=== PATIENT | female | born 1935 | race Caucasian/White ===

== ENCOUNTER → 2018-07-02 | Outpatient (CLI) | payer MEDICARE, OTHER ==
--- NOTE | 2018-07-02 16:45 | US ---
EXAMINATION TYPE: US venous doppler duplex LE LT DATE OF EXAM: 07/02/2018 4:16 PM COMPARISON: NONE CLINICAL HISTORY: M79.662 pain in left leg R22.42 swelling left leg. Pt states left leg swelling SIDE PERFORMED: Left TECHNIQUE: The lower extremity deep venous system is examined utilizing real time linear array sonog manish with graded compression, doppler sonography and color-flow sonography. VESSELS IMAGED: External Iliac Vein (EIV) Common Femoral Vein Deep Femoral Vein Greater Saphenous Vein * Femoral Vein Popliteal Vein Small Saphenous Vein * Proximal Calf Veins (* superficial vessels) Left Leg: Negative for DVT Attempted to call Dr's office at time of exam, no answer IMPRESSION: 1. Left lower extremity ultrasound negative for deep venous thrombosis.
== END ==
LOC: RADUSWWP 15:45
PROVIDERS: ATTEND Family Medicine
DX: M79.662 Pain in left lower leg (principal); M79.89 Other specified soft tissue disorders

== ENCOUNTER 2018-10-12 09:40 | Inpatient (IN) | payer MEDICARE, OTHER ==
[2018-10-12] MEDS ORDERED: ASPIRIN 81 MG PO STA (09:58)
--- NOTE | 2018-10-12 10:40 | ED ---
Chest Pain HPI - General Chief Complaint: Chest Pain Stated Complaint: Chest pain Time Seen by Provider: 10/12/18 09:51 Source: patient, RN notes reviewed Mode of arrival: wheelchair Limitations: no limitations - History of Present Illness Initial Comments: 82-year-old female presents emergency Department with chief complaint of chest discomfort and shortness of breath for last 4-5 days. Patient states she has severe pain which she takes a deep inspiration. Patient states she does have a history of hypertension hyperlipidemia and diabetes. She only takes medications for hypertension. Patient did take 2 baby aspirin this morning. Patient denies any trauma. Patient states she's not dizzy, nauseated, vomiting, diarrhea constipation or fevers chills no URI symptoms. Patient states she's had a cardiac catheter past which showed some narrowing. - Related Data Home Medications Medication Instructions Recorded Confirmed Aspirin 81 mg PO DAILY 06/05/14 10/12/18 Cholecalciferol (Vitamin D3) 2,000 unit PO DAILY 10/12/18 10/12/18 [Vitamin D3] Cyanocobalamin (Vitamin B-12) 1,000 mcg PO DAILY 10/12/18 10/12/18 [Vitamin B-12] Hydrochlorothiazide [Hydrodiuril] 25 mg PO DAILY 10/12/18 10/12/18 Levothyroxine Sodium [Synthroid] 50 mcg PO MOTUWETHFRSA 10/12/18 10/12/18 Losartan [Cozaar] 50 mg PO DAILY 10/12/18 10/12/18 Montelukast [Singulair] 10 mg PO DAILY 10/12/18 10/12/18 Ranitidine HCl [Zantac] 150 mg PO DAILY 10/12/18 10/12/18 Verapamil HCl [Verapamil ER] 120 mg PO DAILY 10/12/18 10/12/18 Allergies Allergy/AdvReac Type Severity Reaction Status Date / Time No Known Allergies Allergy Verified 10/12/18 10:07 Review of Systems ROS Statement: Those systems with pertinent positive or pertinent negative responses have been documented in the HPI. ROS Other: All systems not noted in ROS Statement are negative. 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 Past Medical History Past Medical History: Hypertension, Thyroid Disorder History of Any Multi-Drug Resistant Organisms: None Reported Past Surgical History: Joint Replacement, Orthopedic Surgery Additional Past Surgical History / Comment(s): abdoulaye knee Past Psychological History: No Psychological Hx Reported Smoking Status: Never smoker Past Alcohol Use History: None Reported Past Drug Use History: None Reported General Exam Limitations: no limitations General appearance: alert, in no apparent distress Head exam: Present: atraumatic, normocephalic, normal inspection Neck exam: Present: normal inspection. Absent: tenderness, meningismus, lymphadenopathy Respiratory exam: Present: normal lung sounds bilaterally, chest wall tenderness. Absent: respiratory distress, wheezes, rales, rhonchi, stridor Cardiovascular Exam: Present: regular rate, normal rhythm, normal heart sounds. Absent: systolic murmur, diastolic murmur, rubs, gallop, clicks GI/Abdominal exam: Present: soft, normal bowel sounds. Absent: distended, tenderness, guarding, rebound, rigid Course Vital Signs 10/12/18 10/12/18 10/12/18 09:43 11:00 12:30 Temperature 98.7 F Pulse Rate 75 63 60 Respiratory 18 18 18 Rate Blood Pressure 179/75 132/91 140/70 O2 Sat by Pulse 95 99 99 Oximetry 10/12/18 13:18 Temperature Pulse Rate 68 Respiratory 18 Rate Blood Pressure 140/73 O2 Sat by Pulse Oximetry Chest Pain MDM - MDM 82-year-old female presented to the ER for pleuritic chest pain. This is non- concerning for cardiac, CT shows evidence of possible pneumonia versus cancer. Patient will be admitted for treatment of pneumonia and pulmonary consult. Disposition Clinical Impression: Pneumonia, Pulmonary mass Disposition: ADMITTED IP TO THIS HOSP Condition: Fair Referrals: Leanne Coffman DO [Primary Care Provider] - 1-2 days
[2018-10-12 11:30] LABS: Basophils % (A) 1 %; Eosinophils # (A) 0.3 k/uL (0-0.7); Eosinophils % (A) 5 %; HCT 39.6 % (34.0-46.0); HGB 12.8 gm/dL (11.4-16.0); Lymphocytes # (A) 1.3 k/uL (1.0-4.8); Lymphocytes % (A) 18 %; MCH 28.7 pg (25.0-35.0); MCHC 32.2 g/dL (31.0-37.0); MCV 89.1 fL (80.0-100.0); Mean Platelet Volume 7.5; Monocytes # (A) 0.5 k/uL (0-1.0); Monocytes % (A) 7 %; Neutrophils # (A) 4.6 k/uL (1.3-7.7); Neutrophils % (A) 66 %; Platelet Count 208 k/uL (150-450); RBC 4.44 m/uL (3.80-5.40); RDW 14.3 % (11.5-15.5); WBC 6.9 k/uL (3.8-10.6)
--- NOTE | 2018-10-12 11:39 | XR ---
EXAMINATION TYPE: XR chest 2V DATE OF EXAM: 10/12/2018 COMPARISON: Prior chest x-ray dated 01/04/2012 HISTORY: Chest pain and shortness of breath for 5 days TECHNIQUE: Frontal and lateral views of the chest are obtained. FINDINGS: There is some elevation of left hemidiaphragm, patient is rotated. There are overlying card iac leads. Aorta is dense. There is a spinal curvature. There is no focal air space opacity, pleural effusion, or pneumothorax seen. The cardiac silhouette size is within normal limits. Thoracic spond ylosis is noted. Prominent lung volume could be indicative of underlying COPD. The osseous structures are intact. IMPRESSION: No acute cardiopulmonary process. Rotated exam. Possible mild elevation of left hemidiap hragm.
[2018-10-12 11:42] LABS: ALT 22 U/L (9-52); AST 24 U/L (14-36); Albumin 3.8 g/dL (3.5-5.0); Alkaline Phosphatase 66 U/L (38-126); Anion Gap 5 mmol/L; Blood Urea Nitrogen 16 mg/dL (7-17); Calcium 8.9 mg/dL (8.4-10.2); Carbon Dioxide 32 mmol/L (22-30); Chloride 104 mmol/L (98-107); Glucose 107 mg/dL (74-99); INR 0.9 (<1.2); Lipase 59 U/L (23-300); Magnesium 2.2 mg/dL (1.6-2.3); Potassium 3.8 mmol/L (3.5-5.1); Prothrombin Time 9.8 sec (9.0-12.0); Sodium 141 mmol/L (137-145); Total Bilirubin 0.6 mg/dL (0.2-1.3); Total Protein 6.9 g/dL (6.3-8.2)
[2018-10-12 11:48] LABS: D-Dimer 1.03 mg/L FEU (<0.60)
--- NOTE | 2018-10-12 12:52 | CT ---
EXAMINATION TYPE: CT chest angio for PE DATE OF EXAM: 10/12/2018 COMPARISON: NONE HISTORY: Chest pain CT DLP: 224.6 mGycm. Automated Exposure Control for Dose Reduction was Utilized. CONTRAST: CTA scan of the thorax is performed with IV Contrast, patient injected with 100 mL of Isovue 370, pul monary embolism protocol. MIP Images are created on CT scanner and reviewed. FINDINGS: LUNGS: Slightly elevated left hemidiaphragm is present. Dependent atelectasis bilateral lower lobes i s seen. There are scattered small nodules predominantly in the periphery of the right lower lobe, for reference 4-5 nodules are identified laterally axial image 98 measuring under 4 mm in size. Some sma ll nodules also seen in the periphery of the lower aspect right upper lobe. Additional scattered smal l nodules in the periphery of the left lung are present. Some right infrahilar masslike consolidation axial image 79 is noted. Central right middle lobe involvement axial image 81 is present. This area measures 2.7 x 2.3 cm. MEDIASTINUM: There is satisfactory enhancement of the pulmonary artery and its branches, there is no CT evidence for pulmonary embolism. There are no greater than 1 cm hilar or mediastinal lymph nodes. No paracardial effusion is seen. Heart size is mildly enlarged. No definitive coronary artery calc ification. OTHER: Small to moderate-sized hiatal hernia. Mild to moderate multilevel spurring and vacuum disc ph enomenon. Moderate multilevel spurring in the spine. IMPRESSION: 1. No CT evidence for pulmonary embolism. 2. Mild cardiomegaly with right infrahilar masslike consolidation favoring central pneumonia in the m iddle and lower lobes, correlate clinically. Consider follow-up CT after treatment to reevaluate. Unu sual bilateral peripheral nodularity all measuring 4 mm or smaller in size. Differential would includ e metastatic disease, other etiologies not excluded.
[2018-10-12 12:54] LABS: Appearance,Urine Cloudy (Clear); Bacteria,Urine Many /hpf; Bilirubin,Urine Negative (Negative); Blood,Urine Negative (Negative); Color,Urine Yellow; Glucose,Urine (UA) Negative (Negative); Ketones,Urine Negative (Negative); Leukocyte Esterase,Urine Moderate (Negative); Mucus,Urine Rare /hpf; Nitrite,Urine Negative (Negative); Protein,Urine Negative (Negative); Specific Gravity,Urine 1.018 (1.001-1.035); Squamous Epithelial Cell,Urine 22 /hpf (0-4); Urobilinogen,Urine <2.0 mg/dL (<2.0)
[2018-10-12] MEDS ORDERED: AZITHROMYCIN 500 MG in SODIUM CHLORIDE 0.9% 250 ML IVPB STA (13:35)
[2018-10-12] MEDS ORDERED: cefTRIAXone IN SWFI 1,000 MG/10 ML SYRINGE IVP STA (13:35)
[2018-10-12] MEDS ORDERED: PNEUMONIA PROTOCOL UTILIZED 1 EACH MISC PO PRN (13:41)
[2018-10-12] MEDS ORDERED: guaiFENesin 600 MG TABLET.ER PO PRN (15:40)
[2018-10-12] MEDS ORDERED: ACETAMINOPHEN TAB 325 MG TAB PO PRN (15:41)
[2018-10-12] MEDS ORDERED: IPRATROPIUM-ALBUTEROL 3 ML NEB INHALATION PRN (15:42)
--- NOTE | 2018-10-12 15:52 | P.HPIM ---
History of Present Illness H&P Date: 10/12/18 This is an 82-year-old female patient of Dr. Coffman. Patient presented with complaints of chest discomfort with inspiratory breathing and shortness of breath for the past 4-5 days. Patient reports that she's had increasing cough with moderate sputum production. Patient denies fevers. Patient has a past medical history of hypertension, thyroid disorder and bilateral knee replacement. Patient denies any nicotine use. Chest x-ray showing no acute cardiopulmonary process. Rotated exam. Possible mild elevation of left hemidiaphragm. D-dimer elevated at 10.3. CTA of the chest performed showing no CT evidence for pulmonary embolism. Mild cardiomegaly with right infrahilar masslike consolidation favoring central pneumonia in the middle and lower lobes correlate clinically. Consider follow-up CT after treatment to reevaluate. Bilateral peripheral nodularity all measuring 4 mm or smaller in size. Differential would include metastatic disease and other etiologies not excluded. Patient started on Rocephin and Zithromax. pulmonary service is consulted. At this time patient denies chest pain or shortness of breath. Patient denies nausea vomiting or diarrhea. Patient denies any urinary burning or frequency. Review of Systems Please refer to HPI otherwise unremarkable Past Medical History Past Medical History: Hypertension, Thyroid Disorder History of Any Multi-Drug Resistant Organisms: None Reported Past Surgical History: Joint Replacement, Orthopedic Surgery Additional Past Surgical History / Comment(s): abdoulaye knee Past Psychological History: No Psychological Hx Reported Smoking Status: Never smoker Past Alcohol Use History: None Reported Past Drug Use History: None Reported Medications and Allergies Home Medications Medication Instructions Recorded Confirmed Type Aspirin 81 mg PO DAILY 06/05/14 10/12/18 History Cholecalciferol (Vitamin D3) 2,000 unit PO DAILY 10/12/18 10/12/18 History [Vitamin D3] Cyanocobalamin (Vitamin B-12) 1,000 mcg PO DAILY 10/12/18 10/12/18 History [Vitamin B-12] Hydrochlorothiazide [Hydrodiuril] 25 mg PO DAILY 10/12/18 10/12/18 History Levothyroxine Sodium [Synthroid] 50 mcg PO MOTUWETHFRSA 10/12/18 10/12/18 History Losartan [Cozaar] 50 mg PO DAILY 10/12/18 10/12/18 History Montelukast [Singulair] 10 mg PO DAILY 10/12/18 10/12/18 History Ranitidine HCl [Zantac] 150 mg PO DAILY 10/12/18 10/12/18 History Verapamil HCl [Verapamil ER] 120 mg PO DAILY 10/12/18 10/12/18 History Allergies Allergy/AdvReac Type Severity Reaction Status Date / Time No Known Allergies Allergy Verified 10/12/18 10:07 Physical Exam Vitals: Vital Signs Temp Pulse Resp BP Pulse Ox 10/12/18 14:23 60 16 153/76 96 10/12/18 13:18 68 18 140/73 10/12/18 12:30 60 18 140/70 99 10/12/18 11:00 63 18 132/91 99 10/12/18 09:43 98.7 F 75 18 179/75 95 Intake and Output 10/12/18 10/12/18 10/12/18 06:59 14:59 22:59 Other: Weight 78.925 kg Head normocephalic Neck supple Lungs diminished bilaterally Heart regular rate and rhythm S1-S2, no rub or gallop Abdomen is soft nontender nondistended positive bowel sounds no hepatosplenomegaly Extremities no edema Neuro alert and orientated to 3 Results CBC & Chem 7: 10/12/18 11:00 10/12/18 11:00 Labs: Abnormal Lab Results - Last 24 Hours (Table) 10/12/18 10/12/18 10/12/18 Range/Units 11:00 11:00 11:00 D-Dimer 1.03 H (<0.60) mg/L FEU Carbon Dioxide 32 H (22-30) mmol/L Glucose 107 H (74-99) mg/dL Urine Appearance Cloudy H (Clear) Ur Leukocyte Esterase Moderate H (Negative) Urine WBC 18 H (0-5) /hpf Ur Squamous Epith Cells 22 H (0-4) /hpf Urine Bacteria Many H (None) /hpf Urine Mucus Rare H (None) /hpf Assessment and Plan Assessment: 1. Increased shortness of breath and pleuritic chest pain related to pneumonia. CT of the chest performed showing mild cardiomegaly with right infrahilar masslike consolidation favoring Central pneumonia in the middle and lower lobes correlate clinically. Consider follow-up CT after treatment to reevaluate. 2. Nodularity seen on computed tomography scan of chest. Ct Scan showing bilateral peripheral nodularity all measuring 4 mm or smaller in size. Differential would include metastatic disease, other etiologies not excluded. Pulmonary services have been consulted 3. Urinary tract infection. UA showing moderate amount of leukocyte Estrace. maintained on Rocephin. Urine culture ordered 4. History of GERD 5. History of hyperlipidemia 6. History of essential hypertension 7. History of hypothyroidism 8. History of esophageal strictures DVT prophylaxis heparin. GI prophylaxis Protonix Time with Patient: Greater than 30 (Greater than 60% of the total time spent in counseling and coordination of care. I performed an examination of the patient and discussed their management with the Nurse Practitioner. I have reviewed the Nurse Practitioner's notes and agree with the documented findings and plan of care)
[2018-10-12] MEDS: LEVOTHYROXINE 50 MCG TAB PO SCH (16:08)
[2018-10-12] MEDS: IPRATROPIUM-ALBUTEROL 3 ML NEB INHALATION SCH (19:16)
[2018-10-12] MEDS: HEPARIN SODIUM,PORCINE 5,000 UNIT/ML 1 ML VIAL SQ SCH (20:04)
[2018-10-13] MEDS ORDERED: CALCIUM CARBONATE 500 MG CHEWABLE PO PRN
[2018-10-13] MEDS ORDERED: VERAPAMIL SR 120 MG TABLET.ER PO SCH ×2 (00:30→09:00)
[2018-10-13] MEDS ORDERED: PANTOPRAZOLE 40 MG TABLET PO SCH (07:30)
--- NOTE | 2018-10-13 07:47 | XR ---
EXAMINATION TYPE: XR chest 2V DATE OF EXAM: 10/13/2018 COMPARISON: Prior chest x-ray and chest CT 10/12/2018 HISTORY: Pneumonia TECHNIQUE: Frontal and lateral views of the chest are obtained. FINDINGS: Some patchy right infrahilar density is present. Prominent lung lines compatible with unde rlying COPD. No evident pneumothorax or pleural effusion. Heart size is stable. Small nodularity seen on CT scan is not seen on plain film. IMPRESSION: Correlate for pneumonia, follow-up to resolution, indeterminate pulmonary nodules.
[2018-10-13 07:54] LABS: Basophils # (A) 0.1 k/uL (0-0.2); Basophils % (A) 1 %; Eosinophils # (A) 0.3 k/uL (0-0.7); Eosinophils % (A) 6 %; HCT 36.1 % (34.0-46.0); HGB 11.6 gm/dL (11.4-16.0); Lymphocytes # (A) 1.7 k/uL (1.0-4.8); Lymphocytes % (A) 29 %; MCH 28.7 pg (25.0-35.0); MCHC 32.1 g/dL (31.0-37.0); MCV 89.5 fL (80.0-100.0); Mean Platelet Volume 8.1; Monocytes # (A) 0.5 k/uL (0-1.0); Monocytes % (A) 8 %; Neutrophils % (A) 53 %; Platelet Count 202 k/uL (150-450); RBC 4.04 m/uL (3.80-5.40); RDW 14.3 % (11.5-15.5); WBC 5.6 k/uL (3.8-10.6)
[2018-10-13 08:16] LABS: ALT 21 U/L (9-52); AST 20 U/L (14-36); Albumin 3.2 g/dL (3.5-5.0); Alkaline Phosphatase 54 U/L (38-126); Anion Gap 6 mmol/L; Blood Urea Nitrogen 17 mg/dL (7-17); Calcium 8.7 mg/dL (8.4-10.2); Carbon Dioxide 28 mmol/L (22-30); Chloride 107 mmol/L (98-107); Glucose 95 mg/dL (74-99); Potassium 3.9 mmol/L (3.5-5.1); Sodium 141 mmol/L (137-145); Total Bilirubin 0.4 mg/dL (0.2-1.3)
[2018-10-13] MEDS: IPRATROPIUM-ALBUTEROL 3 ML NEB INHALATION SCH ×2 (08:37→12:30)
[2018-10-13] MEDS: LEVOTHYROXINE 50 MCG TAB PO SCH (08:46)
[2018-10-13] MEDS: HEPARIN SODIUM,PORCINE 5,000 UNIT/ML 1 ML VIAL SQ SCH (08:47)
[2018-10-13] MEDS ORDERED: MONTELUKAST 10 MG TAB PO SCH (09:00)
[2018-10-13] MEDS ORDERED: HYDROCHLOROTHIAZIDE 25 MG TAB PO SCH (09:00)
[2018-10-13] MEDS ORDERED: ASPIRIN 81 MG PO SCH (09:00)
[2018-10-13] MEDS ORDERED: FAMOTIDINE 20 MG TAB PO SCH (09:00)
[2018-10-13] MEDS ORDERED: LOSARTAN 50 MG TAB PO SCH (09:00)
[2018-10-13] MEDS ORDERED: AZITHROMYCIN 500 MG in SODIUM CHLORIDE 0.9% 250 ML IVPB SCH (12:00)
--- NOTE | 2018-10-13 12:28 | P.CNPUL ---
History of Present Illness Consult date: 10/13/18 Reason for consult: dyspnea, cough, chest pain Chief complaint: Chest pain History of present illness: This is an 82-year-old female who presented to the emergency department complaining of chest pain that started 4-5 days ago. She states she does have a cough which is productive of white phlegm. She states her cough is been ongoing for quite a while. She denies fevers and chills. She denies weight loss and states her appetite is good. She denies night sweats. She states she didn't have shortness of breath until she had the chest pain a few days ago. She denies any wheezing. She is a lifelong never smoker. She states she used to work at [email or web address]. 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 She denies any exposures. She denies any contacts with tuberculosis or asbestos. In the emergency department the patient was found have an elevated d-dimer. CT of the chest was performed and showed no evidence of pulmonary embolism however a right infrahilar masslike consolidation was noted. She also has bilateral peripheral nodularity all measuring 4 mm or smaller, differential includes metastatic disease. 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 History of Any Multi-Drug Resistant Organisms: None Reported Past Surgical History: Joint Replacement, Orthopedic Surgery Additional Past Surgical History / Comment(s): abdoulaye knee Past Anesthesia/Blood Transfusion Reactions: No Reported Reaction, Motion Sickness Past Psychological History: No Psychological Hx Reported Smoking Status: Never smoker Past Alcohol Use History: None Reported Past Drug Use History: None Reported - Past Family History Father Family Medical History: No Reported History Additional Family Medical History / Comment(s): Father was healthy and lived to be 98yrs old. Mother Family Medical History: No Reported History Additional Family Medical History / Comment(s): Mother was healthy and lived to be 93 yrs old. Medications and Allergies Home Medications Medication Instructions Recorded Confirmed Type Aspirin 81 mg PO DAILY 06/05/14 10/12/18 History Cholecalciferol (Vitamin D3) 2,000 unit PO DAILY 10/12/18 10/12/18 History [Vitamin D3] Cyanocobalamin (Vitamin B-12) 1,000 mcg PO DAILY 10/12/18 10/12/18 History [Vitamin B-12] Hydrochlorothiazide [Hydrodiuril] 25 mg PO DAILY 10/12/18 10/12/18 History Levothyroxine Sodium [Synthroid] 50 mcg PO MOTUWETHFRSA 10/12/18 10/12/18 History Losartan [Cozaar] 50 mg PO DAILY 10/12/18 10/12/18 History Montelukast [Singulair] 10 mg PO DAILY 10/12/18 10/12/18 History Ranitidine HCl [Zantac] 150 mg PO DAILY 10/12/18 10/12/18 History Verapamil HCl [Verapamil ER] 120 mg PO PC-SUPPER 10/12/18 10/12/18 History Allergies Allergy/AdvReac Type Severity Reaction Status Date / Time No Known Allergies Allergy Verified 10/12/18 10:07 Physical Exam Osteopathic Statement: *. No significant issues noted on an osteopathic structural exam other than those noted in the History and Physical/Consult. Vitals: Vital Signs Temp Pulse Pulse Resp BP BP Pulse Ox 10/13/18 05:11 98 F 73 18 114/66 92 L 10/13/18 00:49 60 140/64 10/12/18 20:31 97.9 F 66 18 143/79 93 L 10/12/18 16:15 97.6 F 78 16 155/72 94 L 10/12/18 14:23 60 16 153/76 96 10/12/18 13:18 68 18 140/73 10/12/18 12:30 60 18 140/70 99 Intake and Output 10/12/18 10/13/18 10/13/18 22:59 06:59 14:59 Other: Voiding Method Toilet Toilet Toilet # Voids 1 1 GEN: Patient is alert and oriented 3, no acute distress Cardiovascular: Regular rate and rhythm, S1/S2 Lungs: Diminished breath sounds bilaterally otherwise clear Abdomen: Soft nontender nondistended positive bowel sounds Extremities: No edema Results - Laboratory Findings CBC and BMP: 10/13/18 06:55 10/13/18 06:55 PT/INR, D-dimer PT 9.8 sec (9.0-12.0) 10/12/18 11:00 INR 0.9 (<1.2) 10/12/18 11:00 D-Dimer 1.03 mg/L FEU (<0.60) H 10/12/18 11:00 Abnormal lab findings: Abnormal Labs 10/12/18 10/12/18 10/12/18 11:00 11:00 11:00 D-Dimer 1.03 H Carbon Dioxide 32 H Glucose 107 H Total Protein Albumin Urine Appearance Cloudy H Ur Leukocyte Esterase Moderate H Urine WBC 18 H Ur Squamous Epith Cells 22 H Urine Bacteria Many H Urine Mucus Rare H 10/13/18 06:55 D-Dimer Carbon Dioxide Glucose Total Protein 6.0 L Albumin 3.2 L Urine Appearance Ur Leukocyte Esterase Urine WBC Ur Squamous Epith Cells Urine Bacteria Urine Mucus - Diagnostic Findings Chest x-ray: report reviewed, image reviewed CT scan - chest: report reviewed, image reviewed Assessment and Plan Assessment: Acute atypical chest pain possible pleurisy Right infrahilar lung mass versus pneumonia Multiple pulmonary nodules of unclear etiology UTI Cardiomegaly GERD Dyslipidemia Hypertension Hypothyroidism Esophageal strictures O2 to maintain saturation greater than or equal to 90% Antibiotics: Azithromycin for 7 days Prednisone taper Outpatient PFT Repeat CT versus PET scan in 4-6 weeks This is discussed with the patient at length Okay to DC from pulmonary standpoint. Follow up next week.
[2018-10-13 12:50] VITALS: BP 131/61; PULSE 61; RESP 16; TEMP 97.8
--- NOTE | 2018-10-13 13:09 | P.DS ---
Providers Date of admission: 10/12/18 14:15 Expected date of discharge: 10/13/18 Attending physician: Jules Jeffers Consults: 10/12/18 13:41 Consult Physician Stat Consulting Provider: Melissa Cooper Consult Reason/Comments: Pulmonary mass, pneumonia Do you want consulting provider notified?: Yes Primary care physician: Leanne Coffman [facility] Course: Discharge diagnosis 1. Increased shortness of breath and pleuritic chest pain related to pneumonia. CT of the chest performed showing mild cardiomegaly with right infrahilar masslike consolidation favoring Central pneumonia in the middle and lower lobes correlate clinically. Consider follow-up CT after treatment to reevaluate. Repeat chest x-ray showing correlation. Resolution since patient has been cleared for discharge. Patient follow-up next week with pulmonary services. patient will be d/c on ceftin for 7 days 2. Nodularity seen on computed tomography scan of chest. Ct Scan showing bilateral peripheral nodularity all measuring 4 mm or smaller in size. Differential would include metastatic disease, other etiologies not excluded. Patient to follow up outpatient with pulmonary services 3. Urinary tract infection. UA showing moderate amount of leukocyte Estrace. maintained on Rocephin. Urine culture ordered 4. History of GERD 5. History of hyperlipidemia 6. History of essential hypertension 7. History of hypothyroidism 8. History of esophageal strictures Hospital course This is an 82-year-old female patient of Dr. Coffman. Patient presented with complaints of chest discomfort with inspiratory breathing and shortness of breath for the past 4-5 days. Patient reports that she's had increasing cough with moderate sputum production. Patient denies fevers. Patient has a past medical history of hypertension, thyroid disorder and bilateral knee replacement. Patient denies any nicotine use. Chest x-ray showing no acute cardiopulmonary process. Rotated exam. Possible mild elevation of left hemidiaphragm. D-dimer elevated at 10.3. CTA of the chest performed showing no CT evidence for pulmonary embolism. Mild cardiomegaly with right infrahilar masslike consolidation favoring central pneumonia in the middle and lower lobes correlate clinically. Consider follow-up CT after treatment to reevaluate. Bilateral peripheral nodularity all measuring 4 mm or smaller in size. Differential would include metastatic disease and other etiologies not excluded. Patient started on Rocephin and Zithromax. pulmonary service is consulted. At this time patient denies chest pain or shortness of breath. Patient denies nausea vomiting or diarrhea. Patient denies any urinary burning or frequency. On 10/13/2018 patient is alert and oriented 3 patient expresses that she is very eager to go home. Patient reevaluate pulmonary services. Discussed case pulmonary services okay to DC home on antibiotic and follow-up outpatient 1 week for workup. At this time patient denies any chest pain or shortness breath. Patient denies nausea vomiting diarrhea. Denies urinary burning or frequency. I performed an examination of the patient and discussed their management with the Nurse Practitioner. I have reviewed the Nurse Practitioner's notes and agree with the documented findings and plan of care Patient Condition at Discharge: Stable Plan - Discharge Summary Discharge Rx Participant: No New Discharge Prescriptions: New Cefuroxime Axetil [Ceftin] 500 mg PO BID 14 Days #7 tab Continue Aspirin 81 mg PO DAILY Ranitidine HCl [Zantac] 150 mg PO DAILY Losartan [Cozaar] 50 mg PO DAILY Hydrochlorothiazide [Hydrodiuril] 25 mg PO DAILY Cyanocobalamin (Vitamin B-12) [Vitamin B-12] 1,000 mcg PO DAILY Cholecalciferol (Vitamin D3) [Vitamin D3] 2,000 unit PO DAILY Montelukast [Singulair] 10 mg PO DAILY Levothyroxine Sodium [Synthroid] 50 mcg PO MOTUWETHFRSA Verapamil HCl [Verapamil ER] 120 mg PO PC-SUPPER Discharge Medication List Aspirin 81 mg PO DAILY 06/05/14 [History] Cholecalciferol (Vitamin D3) [Vitamin D3] 2,000 unit PO DAILY 10/12/18 [History] Cyanocobalamin (Vitamin B-12) [Vitamin B-12] 1,000 mcg PO DAILY 10/12/18 [History] Hydrochlorothiazide [Hydrodiuril] 25 mg PO DAILY 10/12/18 [History] Levothyroxine Sodium [Synthroid] 50 mcg PO MOTUWETHFRSA 10/12/18 [History] Losartan [Cozaar] 50 mg PO DAILY 10/12/18 [History] Montelukast [Singulair] 10 mg PO DAILY 10/12/18 [History] Ranitidine HCl [Zantac] 150 mg PO DAILY 10/12/18 [History] Verapamil HCl [Verapamil ER] 120 mg PO PC-SUPPER 10/12/18 [History] Cefuroxime Axetil [Ceftin] 500 mg PO BID 14 Days #7 tab 10/13/18 [Rx] Follow up Appointment(s)/Referral(s): Melissa Cooper DO [Doctor of Osteopathic Medicine] - 1 Week Leanne Coffman DO [Primary Care Provider] - 1-2 days Activity/Diet/Wound Care/Special Instructions: Activity as tolerated Diet heart healthy
[2018-10-14] MEDS ORDERED: AZITHROMYCIN 500 MG TAB PO SCH (12:00)
== END 2018-10-13 15:05 | disposition home or self-care (01) | DRG 194 ==
LOC: EC 09:40 → 3NMEDONC 14:15
PROVIDERS: ADMIT Internal Medicine; ATTEND Internal Medicine
DX: J18.9 Pneumonia, unspecified organism (principal); N39.0 Urinary tract infection, site not specified; I10 Essential (primary) hypertension; E78.5 Hyperlipidemia, unspecified; E11.9 Type 2 diabetes mellitus without complications; K21.9 Gastro-esophageal reflux disease without esophagitis; R91.8 Other nonspecific abnormal finding of lung field; E03.9 Hypothyroidism, unspecified; K22.2 Esophageal obstruction; Z96.653 Presence of artificial knee joint, bilateral; I44.4 Left anterior fascicular block; Z79.82 Long term (current) use of aspirin; Z79.899 Other long term (current) drug therapy; Z79.890 Hormone replacement therapy
CPT/HCPCS: 36415; 71046; 71275; 80053; 81001; 83690; 83735; 83880; 84484; 85025; 85379; 85610; 85730; 87086; 93005; 96365; 96375; 99285

== ENCOUNTER → 2018-11-12 | Outpatient (CLI) | payer MEDICARE, OTHER ==
--- NOTE | 2018-11-12 13:35 | CT ---
EXAMINATION TYPE: CT chest wo con DATE OF EXAM: 11/12/2018 COMPARISON: 10/12/2018 HISTORY: Lung nodule CT DLP: 227.[address] of the chest was performed with lung and mediastinal window settings submitted. The la ck of contrast limits evaluation of the vascular, mediastinal and parenchymal structures including th e upper abdomen. LUNGS: The lungs are clear and free of infiltrate. No atelectasis. Tiny scattered pulmonary nodules a re seen throughout both lung sorto measuring up to 3 to 4 mm bilaterally. These nodules are nonspeci fic. Follow-up in 4-6 months is advised. No evidence for spiculated mass. No pleural effusion. No CT evidence of interstitial lung disease. MEDIASTINUM/MARIEL: Thoracic aorta is of normal caliber with limited evaluation given lack of contrast . The heart is enlarged. No evidence for mediastinal mass. No lymph nodes greater than 1cm. Moder ate fixed hiatal hernia. UPPER ABDOMEN: No significant abnormality is seen. OTHER: No significant other abnormality. IMPRESSION: 1. Tiny scattered pulmonary nodules are seen throughout both lung sorto measuring up to 3 to 4 mm b ilaterally. These nodules are nonspecific. Follow-up in 4-6 months is advised. No evidence for spicul ated mass.
== END | disposition home or self-care (01) ==
LOC: RADCTMAIN 12:00
PROVIDERS: ATTEND Internal Medicine
DX: R91.8 Other nonspecific abnormal finding of lung field (principal); K22.2 Esophageal obstruction
CPT/HCPCS: 71250

== ENCOUNTER 2019-11-11 12:46 | Emergency (ER) | payer MEDICARE, OTHER ==
--- NOTE | 2019-11-11 13:38 | ED ---
General Adult HPI - General Chief complaint: Psychiatric Symptoms Stated complaint: Depression Time Seen by Provider: 11/11/19 13:08 Source: patient, family, RN notes reviewed Mode of arrival: ambulatory Limitations: no limitations - History of Present Illness Initial comments: Patient is a pleasant 83-year-old female presenting to the emergency Department with with concerns regarding depression. Patient was on steroids and has been off for over a week now. Patient was on steroids for some sort of groin problem that has resolved. Patient has been more depressed and making odd statements. Patient is making suicidal statements. Patient is making occasional threatening statements. Patient has reported confusion that is more specifically described as difficulty concentrating. No new physical complaints. No alcohol or street drug use. No hallucinations. Patient did have similar symptoms years ago and was hospitalized psychiatrically for this. - Related Data Home Medications Medication Instructions Recorded Confirmed Aspirin 81 mg PO DAILY 06/05/14 11/11/19 Cholecalciferol (Vitamin D3) 2,000 unit PO DAILY 10/12/18 11/11/19 [Vitamin D3] Cyanocobalamin (Vitamin B-12) 1,000 mcg PO DAILY 10/12/18 11/11/19 [Vitamin B-12] Levothyroxine Sodium [Synthroid] 50 mcg PO DAILY 10/12/18 11/11/19 Losartan [Cozaar] 50 mg PO DAILY PRN 10/12/18 11/11/19 Montelukast [Singulair] 10 mg PO DAILY 10/12/18 11/11/19 Verapamil HCl [Verapamil ER] 120 mg PO PC-SUPPER PRN 10/12/18 11/11/19 Allergies Allergy/AdvReac Type Severity Reaction Status Date / Time No Known Allergies Allergy Verified 11/11/19 14:03 Review of Systems ROS Statement: Those systems with pertinent positive or pertinent negative responses have been documented in the HPI. ROS Other: All systems not noted in ROS Statement are negative. 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 History of Any Multi-Drug Resistant Organisms: None Reported Past Surgical History: Joint Replacement, Orthopedic Surgery Additional Past Surgical History / Comment(s): abdoulaye knee Past Anesthesia/Blood Transfusion Reactions: No Reported Reaction, Motion Sickness Past Psychological History: No Psychological Hx Reported Smoking Status: Never smoker Past Alcohol Use History: None Reported Past Drug Use History: None Reported - Past Family History Father Family Medical History: No Reported History Additional Family Medical History / Comment(s): Father was healthy and lived to be 98yrs old. Mother Family Medical History: No Reported History Additional Family Medical History / Comment(s): Mother was healthy and lived to be 93 yrs old. General Exam Limitations: no limitations General appearance: alert, in no apparent distress Head exam: Present: normocephalic Eye exam: Present: normal appearance, EOMI Neck exam: Present: normal inspection Respiratory exam: Present: normal lung sounds bilaterally Cardiovascular Exam: Present: regular rate, normal rhythm GI/Abdominal exam: Present: soft. Absent: tenderness Extremities exam: Present: normal inspection Neurological exam: Present: alert Psychiatric exam: Present: depressed Skin exam: Present: normal color Course Vital Signs 11/11/19 13:02 Temperature 98.1 F Pulse Rate 96 Respiratory 16 Rate Blood Pressure 145/78 O2 Sat by Pulse 97 Oximetry EKG Findings - EKG Comments: EKG Findings:: Normal sinus rhythm 88. MO 160. QRS 132. QT 380. QTC 459. Left axis. Right bundle branch block. Left anterior fascicular block. LVH. No acute ST change. Medical Decision Making - Medical Decision Making Patient was seen by mental health services with plans for transfer to psychiatric facility secondary to no beds available. - Lab Data Result diagrams: 11/11/19 14:45 11/11/19 14:45 Lab Results 11/11/19 11/11/19 11/11/19 Range/Units 14:25 14:45 14:45 WBC 11.8 H (3.8-10.6) k/uL RBC 5.00 (3.80-5.40) m/uL Hgb 14.8 (11.4-16.0) gm/dL Hct 45.8 (34.0-46.0) % MCV 91.5 (80.0-100.0) fL MCH 29.6 (25.0-35.0) pg MCHC 32.4 (31.0-37.0) g/dL RDW 13.8 (11.5-15.5) % Plt Count 146 L (150-450) k/uL Neutrophils % 78 % Lymphocytes % 14 % Monocytes % 6 % Eosinophils % 1 % Basophils % 0 % Neutrophils # 9.2 H (1.3-7.7) k/uL Lymphocytes # 1.6 (1.0-4.8) k/uL Monocytes # 0.7 (0-1.0) k/uL Eosinophils # 0.1 (0-0.7) k/uL Basophils # 0.0 (0-0.2) k/uL Sodium 134 L (137-145) mmol/L Potassium 4.9 (3.5-5.1) mmol/L Chloride 98 (98-107) mmol/L Carbon Dioxide 28 (22-30) mmol/L Anion Gap 8 mmol/L BUN 29 H (7-17) mg/dL Creatinine 0.85 (0.52-1.04) mg/dL Est GFR (CKD-EPI)AfAm 75 (>60 ml/min/1.73 sqM) Est GFR (CKD-EPI)NonAf 65 (>60 ml/min/1.73 sqM) Glucose 139 H (74-99) mg/dL Calcium 9.0 (8.4-10.2) mg/dL Urine Color Yellow Urine Appearance Clear (Clear) Urine pH 5.5 (5.0-8.0) Ur Specific [place] 1.020 (1.001-1.035) Urine Protein Negative (Negative) Urine Glucose (UA) Negative (Negative) Urine Ketones Negative (Negative) Urine Blood Negative (Negative) Urine Nitrite Negative (Negative) Urine Bilirubin Negative (Negative) Urine Urobilinogen <2.0 (<2.0) mg/dL Ur Leukocyte Esterase Small H (Negative) Urine RBC 1 (0-5) /hpf Urine WBC 6 H (0-5) /hpf Ur Squamous Epith Cells <1 (0-4) /hpf Hyaline Casts 3 H (0-2) /lpf Urine Mucus Occasional H (None) /hpf Urine Opiates Screen Not Detected (NotDetected) Ur Oxycodone Screen Not Detected (NotDetected) Urine Methadone Screen Not Detected (NotDetected) Ur Propoxyphene Screen Not Detected (NotDetected) Ur Barbiturates Screen Not Detected (NotDetected) U Tricyclic Antidepress Not Detected (NotDetected) Ur Phencyclidine Scrn Not Detected (NotDetected) Ur Amphetamines Screen Not Detected (NotDetected) U Methamphetamines Scrn Not Detected (NotDetected) U Benzodiazepines Scrn Detected H (NotDetected) Urine Cocaine Screen Not Detected (NotDetected) U Marijuana (THC) Screen Not Detected (NotDetected) Serum Alcohol <10 mg/dL Disposition Clinical Impression: Depression, Suicidal ideation Disposition: TRANSFER TO PSYCH HOSP/UNIT Is patient prescribed a controlled substance at d/c from ED?: No Referrals: Leanne Coffman DO [Primary Care Provider] - 1-2 days Time of Disposition: 16:50
[2019-11-11 14:44] LABS: Appearance,Urine Clear (Clear); Bilirubin,Urine Negative (Negative); Blood,Urine Negative (Negative); Color,Urine Yellow; Glucose,Urine (UA) Negative (Negative); Hyaline Casts,Urine 3 /lpf (0-2); Ketones,Urine Negative (Negative); Leukocyte Esterase,Urine Small (Negative); Mucus,Urine Occasional /hpf; Nitrite,Urine Negative (Negative); PH, Urine 5.5 (5.0-8.0); Protein,Urine Negative (Negative); RBC,Urine 1 /hpf (0-5); Squamous Epithelial Cell,Urine <1 /hpf (0-4); Urobilinogen,Urine <2.0 mg/dL (<2.0); WBC,Urine 6 /hpf (0-5)
[2019-11-11 14:50] LABS: Amphetamine Screen,Urine Not Detected (NotDetected); Barbiturate Screen,Urine Not Detected (NotDetected); Benzodiazepines Screen,Urine Detected (NotDetected); Cocaine Screen,Urine Not Detected (NotDetected); Methadone Screen, Urine Not Detected (NotDetected); Opiate Screen,Urine Not Detected (NotDetected); Oxycodone Screen, Urine Not Detected (NotDetected); Phencyclidine Screen,Urine Not Detected (NotDetected); Tricyclic Antidepressant,Urine Not Detected (NotDetected); Urn Cannabinoid Scrn Not Detected (NotDetected)
[2019-11-11 14:57] LABS: Basophils % (A) 0 %; Eosinophils # (A) 0.1 k/uL (0-0.7); Eosinophils % (A) 1 %; HCT 45.8 % (34.0-46.0); HGB 14.8 gm/dL (11.4-16.0); Lymphocytes # (A) 1.6 k/uL (1.0-4.8); Lymphocytes % (A) 14 %; MCH 29.6 pg (25.0-35.0); MCHC 32.4 g/dL (31.0-37.0); MCV 91.5 fL (80.0-100.0); Mean Platelet Volume 7.4; Monocytes # (A) 0.7 k/uL (0-1.0); Monocytes % (A) 6 %; Neutrophils # (A) 9.2 k/uL (1.3-7.7); Neutrophils % (A) 78 %; Platelet Count 146 k/uL (150-450); RDW 13.8 % (11.5-15.5); WBC 11.8 k/uL (3.8-10.6)
[2019-11-11 15:10] LABS: African American GFR (CKD) 75 (>60 ml/min/1.73 sqM); Alcohol <10 mg/dL; Anion Gap 8 mmol/L; Blood Urea Nitrogen 29 mg/dL (7-17); Carbon Dioxide 28 mmol/L (22-30); Chloride 98 mmol/L (98-107); Glucose 139 mg/dL (74-99); Non-African American GFR(CKD) 65 (>60 ml/min/1.73 sqM); Potassium 4.9 mmol/L (3.5-5.1); Sodium 134 mmol/L (137-145)
[2019-11-11 22:10] VITALS: BP 137/78; PULSE 81; RESP 16; TEMP 98.5
== END 2019-11-11 22:11 ==
LOC: EC 12:46
DX: Z03.818 Encounter for observation for suspected exposure to other biological agents ruled out (principal); F32.9 Major depressive disorder, single episode, unspecified; R45.851 Suicidal ideations; I10 Essential (primary) hypertension; E03.9 Hypothyroidism, unspecified; Z79.82 Long term (current) use of aspirin; Z79.899 Other long term (current) drug therapy; Z79.890 Hormone replacement therapy
CPT/HCPCS: 99285; 36415; 93005; 80048; 85025; 81001; 80306; G0480; U0003; 80320

== ENCOUNTER → 2021-07-19 | Outpatient (CLI) | payer MEDICARE, OTHER ==
--- NOTE | 2021-07-19 13:50 | CT ---
EXAMINATION TYPE: CT chest w con DATE OF EXAM: 07/19/2021 COMPARISON: CT dated 11/12/2018 HISTORY: Solitary Pulmonary Nodule CT DLP: 504 mGycm Automated exposure control for dose reduction was used. TECHNIQUE: CT scan of the chest is performed with IV Contrast, patient injected with 100 ml mL of Isovue 300. FINDINGS: LUNGS: Redemonstration of the previously seen innumerable pulmonary nodules, predominantly groundglas s in density and measuring up to 4 mm. They are seen mainly in the peripheral aspects of the lungs mo st evident in the lower lung zones. They are grossly stable as compared to the previous CT scan and l ikely representing inflammatory/infectious process. Chronic atypical infection cannot be excluded. 19 mm subtle groundglass opacity in the right lower lung zone (image #[id number], series 4), not appreciated pr eviously. No spiculated lung lesion identified. Patent central airways. No pleural effusion MEDIASTINUM: There are no greater than 1 cm hilar or mediastinal lymph nodes. Cardiomegaly with left atrial enlargement, please correlate with echocardiographic results. Scattered arterial and coronary atherosclerotic calcifications. No pericardial effusion is seen. OTHER: Large hiatal hernia containing the gastric fundus. Osteopenia. Suspected hepatic steatosis. IMPRESSION: Innumerable peripheral groundglass millimetric pulmonary nodules as detailed above, not significantly changed compared to the previous CT scan. This could be related to chronic inflammatory/infectious p rocess. Atypical infection cannot be excluded. Further pulmonology consultation can be considered. Newly seen subtle groundglass opacity in the right lower lung lobe as described above, for precaution eva follow-up CT scan in 2-3 months.
== END | disposition home or self-care (01) ==
LOC: RADCTMAIN 11:53
PROVIDERS: ATTEND Family Medicine
DX: R91.1 Solitary pulmonary nodule (principal)
CPT/HCPCS: 71260; Q9967